=== PATIENT | female | born 1980 | race Caucasian/White ===

== ENCOUNTER 2017-08-18 08:40 | Emergency (ER) | payer OTHER ==
[~2017-08-18] VITALS: Ht 154.9 cm; Wt 108.9 kg
[2017-08-18 08:49] VITALS: BP_SYST 189
--- NOTE | 2017-08-18 08:49 | NUR ---
Patient to ER bed 7 to gown for evaluation. Side rails up. Report received from LORRAINE Borden.
[2017-08-18] MEDS ORDERED: NACL 0.9% 1,000 ML IV ONE (08:59)
[2017-08-18] MEDS ORDERED: ONDANSETRON HCL 4 MG/2 ML VIAL IVP ONE (09:00)
[2017-08-18] MEDS ORDERED: MORPHINE 4 MG/ML INJ. SYRINGE IVP ONE (09:00)
--- NOTE | 2017-08-18 09:00 | NUR ---
Pt complains of pain to upper left quadrant that radiates to back for 3 weeks. Pt states she had gone to "urgent care a few weeks ago and urine tested negative for infection." Per patient, the pain has increasingly worsened the past two days. Pt states she vomited x 2 within the two days and had a "low grade fever and diarrhea." No other injuries/complaints per patient or noted.
--- NOTE | 2017-08-18 09:28 | NUR ---
Pt went to radiology in stable condition.
[2017-08-18 09:33] LABS: BILIRUBIN,URINE NEGATIVE (NEGATIVE); BLOOD, URINE NEGATIVE (NEGATIVE); CLARITY/URINE CLEAR (CLEAR); GLUCOSE,URINE NEGATIVE (NEGATIVE); KETONES,URINE NEGATIVE (NEGATIVE); LEUKOCYTE ESTERASE ,URINE NEGATIVE (NEGATIVE); NITRITE, URINE NEGATIVE (NEGATIVE); PH,URINE 6.5 (5.0-8.0); PROTEIN URINE NEGATIVE (NEGATIVE); UROBILINOGEN,URINE 0.2 (0.2-1.0)
[2017-08-18 09:35] LABS: COLOR,URINE YELLOW (YELLOW)
--- NOTE | 2017-08-18 09:35 | NUR ---
Pt returned from radiology in stable condition.
--- NOTE | 2017-08-18 09:40 | NUR ---
Medications were given, pt tolerated well. No adverse reaction, will continue to monitor.
[2017-08-18 09:47] LABS: BASOPHILS % (AUTO) 0.6 % (0.0-2.0); EOSINOPHILS % (AUTO) 0.5 % (0.0-4.0); HEMOGLOBIN 14.2 g/dL (12.0-16.0); LYMPHOCYTES % (AUTO) 25.5 % (20.5-51.5); MEAN CORPUSCULAR HEMOGLOBIN 31 pg (27-31); MEAN CORPUSCULAR HGB CONC 34 % (32-36); MEAN CORPUSCULAR VOLUME 90 fL (79.0-98.0); MONOCYTES # (AUTO) 0.3 K/uL (0.0-1.0); MONOCYTES % (AUTO) 3.9 % (1.7-9.3); NEUTROPHILS # (AUTO) 5.5 K/uL (1.8-7.7); NEUTROPHILS % (AUTO) 69.5 % (40.0-70.0); PLATELET COUNT (AUTO) 319 K/uL (130-430); RED BLOOD CELL COUNT(AUTO) 4.67 MIL/uL (4.2-6.2); RED CELL DISTRIBUTION WIDTH 12.9 % (9.0-15.0); WHITE BLOOD COUNT (AUTO) 7.8 K/uL (4.8-10.8)
[2017-08-18 09:59] LABS: CALCIUM 9.2 mg/dL (8.4-11.0); CREATININE 0.76 mg/dL (0.55-1.30)
[2017-08-18 10:04] LABS: ALBUMIN 3.7 g/dL (3.4-4.8); TOTAL BILIRUBIN 0.3 mg/dL (0.0-1.0)
[2017-08-18 10:09] LABS: PROTHROMBIN TIME 10.3 SECS (9.5-12.5)
--- NOTE | 2017-08-18 10:09 | NUR ---
Re-assessed patient pain level, 2/10
--- NOTE | 2017-08-18 11:01 | NUR ---
Pt resting comfortably in hospital bed. No acute distress. Will continue to monitor.
--- NOTE | 2017-08-18 11:14 | NUR ---
DR NOBLE AT BEDSIDE SPEAKING WITH PT REGARDING TEST RESULTS
[2017-08-18 11:16] VITALS: BP_SYST 131
--- NOTE | 2017-08-18 11:16 | NUR ---
Patient given written and verbal discharge instructions and verbalizes understanding. ER MD discussed with patient the results and treatment provided. Patient in stable condition. ID arm band removed. IV catheter removed intact and dressing applied, no active bleeding. Rx of TYLENOL #3, ZOFRAN given. Patient educated on pain management and to follow up with PMD. Pain Scale 0/10. Opportunity for questions provided and answered. Medication side effect fact sheet provided.
== END 2017-08-18 11:16 | disposition home or self-care (01) ==
LOC: SED 08:40
DX: K29.70 Gastritis, unspecified, without bleeding (principal); Z88.0 Allergy status to penicillin; Z90.49 Acquired absence of other specified parts of digestive tract
CPT/HCPCS: 36415; 74176; 80053; 81003; 81025; 82150; 83690; 85025; 85610; 85730; 96361; 96374; 96375; 99285; J2270; J2405; J7030

== ENCOUNTER 2018-10-13 13:00 | Emergency (ER) | payer OTHER ==
[~2018-10-13] VITALS: Ht 154.9 cm; Wt 111.1 kg
[2018-10-13 13:04] VITALS: BP_SYST 167
[2018-10-13] MEDS ORDERED: KETOROLAC TROMETHAMINE 30 MG VIAL IVP ONE (13:15)
[2018-10-13] MEDS ORDERED: ONDANSETRON HCL 4 MG/2 ML VIAL IVP ONE (13:30)
[2018-10-13 13:44] LABS: BASOPHILS # (AUTO) 0.1 K/uL (0.0-0.2); BASOPHILS % (AUTO) 1.1 % (0.0-2.0); EOSINOPHILS # (AUTO) 0.1 K/uL (0.0-0.4); EOSINOPHILS % (AUTO) 1.2 % (0.0-4.0); HEMATOCRIT 42.2 % (36-48); HEMOGLOBIN 14.5 g/dL (12.0-16.0); LYMPHOCYTES # (AUTO) 3.1 K/uL (1.0-5.5); LYMPHOCYTES % (AUTO) 35.3 % (20.5-51.5); MEAN CORPUSCULAR HEMOGLOBIN 32 pg (27-31); MEAN CORPUSCULAR HGB CONC 34 % (32-36); MEAN CORPUSCULAR VOLUME 93 fL (79.0-98.0); MONOCYTES # (AUTO) 0.5 K/uL (0.0-1.0); MONOCYTES % (AUTO) 5.9 % (1.7-9.3); NEUTROPHILS % (AUTO) 56.5 % (40.0-70.0); PLATELET COUNT (AUTO) 279 K/uL (130-430); RED BLOOD CELL COUNT(AUTO) 4.54 MIL/uL (4.2-6.2); WHITE BLOOD COUNT (AUTO) 8.9 K/uL (4.8-10.8)
[2018-10-13] MEDS ORDERED: IOHEXOL 350 mgI/mL, 150 ML INFUS..BTL IV ONE (13:49)
[2018-10-13 13:54] LABS: CALCIUM 9.7 mg/dL (8.4-11.0); CREATININE 0.74 mg/dL (0.55-1.30); POTASSIUM 3.7 mmol/L (3.5-5.1)
[2018-10-13 13:58] LABS: INR 0.9 (0.8-1.2); PROTHROMBIN TIME 9.6 SECS (9.5-12.5)
[2018-10-13 13:59] LABS: ALBUMIN 3.9 g/dL (3.4-4.8); TOTAL BILIRUBIN 0.3 mg/dL (0.0-1.0)
[2018-10-13 15:10] VITALS: BP_SYST 144
== END 2018-10-13 15:19 | disposition home or self-care (01) ==
LOC: SED 13:00
DX: J40 Bronchitis, not specified as acute or chronic (principal); E03.9 Hypothyroidism, unspecified; Z90.49 Acquired absence of other specified parts of digestive tract; Z88.0 Allergy status to penicillin
CPT/HCPCS: 36415; 71045; 71275; 80053; 81025; 83880; 84484; 85025; 85379; 85610; 85730; 93005; 96374; 96375; 99284; J1885; J2405; Q9967